=== PATIENT | male | born 1995 | race Caucasian/White ===

== ENCOUNTER 2024-10-11 13:28 | Emergency (ER) | payer BC | END 2024-10-11 14:15 | disposition home or self-care (01) | LOC: LB.ED 13:28 | DX: S61.011A Laceration without foreign body of right thumb without damage to nail, initial encounter (principal); Z91.030 Bee allergy status; W26.8XXA Contact with other sharp object(s), not elsewhere classified, initial encounter | CPT/HCPCS: 12001; 12002; 99282; 99283 ==